=== PATIENT | female | born 1990 | race Caucasian/White ===

== ENCOUNTER 2016-11-23 08:19 | Inpatient (IN) ==
[2016-11-23] MEDS ORDERED: Oxytocin 20 units/ LR 1000 mL 20 UNIT/1,000 ML BAG IVC ONE ×2 (08:29→10:39)
[2016-11-23] MEDS ORDERED: Ringers Solution, Lactated 1,000 ML ONE (08:29)
[2016-11-23 08:53] LABS: Basophils % 0.3 %; Eosinophils # 0.1 K/mcL (0.0-0.6); Eosinophils % 0.8 %; Hematocrit 36.5 % (35.3-44.9); Hemoglobin 11.9 g/dL (11.5-15.4); Immature Granulocytes % 0.6 % (0-4); Lymphocytes # 3.1 K/mcL (0.6-4.6); Lymphocytes % 25.4 %; Mean Corpuscular HGB Conc 32.6 g/dL (31.6-35.5); Mean Corpuscular Hemoglobin 27.3 pg (28.0-33.3); Mean Corpuscular Volume 83.7 fL (83.0-100.0); Mean Platelet Volume 12.4 fL (9.4-12.4); Monocytes # 0.5 K/mcL (0.0-1.3); Monocytes % 4.1 %; Neutrophils # 8.5 K/mcL (1.6-8.9); Platelet Count 200 K/mcL (140-400); Red Blood Count 4.36 M/mcL (3.82-4.97); Red Cell Distribution Width 15.2 % (11.5-14.5); Segmented Neutrophils % 68.8 %
--- NOTE | 2016-11-23 09:03 | Anesthesia Evaluation PreOp ---
Date of Encounter: 11/23/16 Time of Encounter: 08:40 - Past History Planned Operation: vaginal delivery attempt with possible csection Cardiac History: Denies any Significant Hx, Pacemaker/ICD (p) Pulmonary History: Smoker, Pack/yr (5pk/yr) REAL ESTATE TRANSACTION COORDINATOR History: Other (pseudotumor cerebri with shunt placed in 2008, legally blind ) Other Medical History: Denies Any Significant HX Anesthesia History: No Prior Anesthetic Complications, Past Anesthesia (shunt placement for pseudotumor cerebri) : Yes Alcohol Use: none Drug use: none Medications and Allergies Ibuprofen [Motrin] 600 mg PO Q6H PRN #60 tablet 01/19/16 [Rx] Vit/FA 1 each PO DAILY tablet 01/19/16 [Rx] Allergies Penicillins Allergy (Mild, Verified 01/18/16 14:30) Rash Erythromycin Base Allergy (Unknown, Verified 01/18/16 14:30) See Comments patient states that reaction is unknown due to reaction taking place as a young child - Meds/Allergy Pre-op Review Medications Reviewed: Yes Allergies Reviewed: Yes Beta Blockers on Current Med List: No Anesthesia Results - Labs 11/23/16 08:30 Anesthesia Exam BP 133/72 P 100 R 20 Height: 5'3" NPO (# of Hours): 7HRS WATER LAST 1AM Pain Scale: 4 Pain Scale Used: Numeric (1 - 10) - HEENT Pupil (Motor): Pupils equal Mallampati: II Teeth: Missing (BACK TEETH) Oral Opening: Greater than 3 - REAL ESTATE TRANSACTION COORDINATOR REAL ESTATE TRANSACTION COORDINATOR Motor: Normal RUE, Normal LUE, Normal RLE, Normal LLE, Normal Face REAL ESTATE TRANSACTION COORDINATOR Sensory: Normal: RUE, LUE, RLE, LLE, Face - Cardiac Rhythm: Regular Murmur: None JVD: No Carotid Bruit: No - Pulmonary Breath Sounds: bilateral Clear Respiratory Effort: Symmetrical Anesthesia Assess/Plan ASA Score: 3 (MORBID OBESITY, PSEUDOTUMOR CEREBRI, SMOKER) Modified [place] Scale for Level of Consciousness: Cooperative, oriented, and tranquil Anesthetic Plan: General Autologous Blood: No Monitoring Plan: Standard Monitors Recovery Plan: PACU
[2016-11-23] MEDS ORDERED: Lidocaine 1% 20 ML MDV ONE (09:14)
--- NOTE | 2016-11-23 09:45 | OB/GYN History & Physical ---
Date of Encounter: 11/23/16 Time of Encounter: 08:45 Assessment and Plan (1) 38 weeks gestation of Current visit: Yes Status: Acute (2) Short interval between pregnancies affecting in third trimester, antepartum Current visit: Yes Status: Chronic The patient has been receiving care (3) Morbid obesity with BMI of 45.0-49.9, adult Current visit: No Status: Chronic Glucose screening normal. Patient has been receiving serial ultrasound for growth (4) Pseudotumor cerebri Current visit: No Status: Acute Status post shunt (5) Twin gestation in third trimester Current visit: Yes Status: Acute The patient has received serial ultrasounds and care. She has been vertex vertex on her last ultrasound and is requesting a vaginal delivery with consent for emergency if needed. Patient will need to be delivered by double set up in the operating room. Patient unable to have epidural or spinal anesthesia due to her history of pseudotumor cerebri and shunt Qualifiers: Multiple gestation type: dichorionic and diamniotic Qualified Code(s): O30.043 - Twin , dichorionic/diamniotic, third trimester (6) Gestational hypertension affecting third Current visit: Yes Status: Acute PIH labs and monitoring History of Present Illness Chief complaint: 38 wk twins HPI: Ms. Toth is a 26 year old female 3 para 2 EDC 12/06/16 @ 38 week twin gestation with spontaneous rupture membranes at 06 30. She reports contractions started at 7 AM. She reports the fluid was clear. She has been receiving care with Dr. White and has had level II ultrasounds. Both fetuses have been active. She reports that the first baby has been vertex and the second baby has been transverse but was vertex on her last ultrasound. First baby is a male and the second baby is female. This is also complicated by morbid obesity, tobacco use, history of pseudotumor cerebri, family history of Down syndrome. The patient is legally blind. She has history of noncompliance with her care. She also has a short interval. GBS is negative, blood type O positive, rubella immune, varicella immune Past Med Surg Social Fam HX - Past Medical History Source: patient, old records reviewed Medical history: other (Pseudotumor cerebri, blindness) Psychiatric history: no psych history - Past Surgical History Surgical History: other (Shunt) - Social History Smoking Status: Former smoker Smokeless Tobacco Status: No Alcohol use: none Drug use: none - Family History Mother Living Status: Still Living Hx Family Cardiac Disorders: No Hx Family Respiratory Disorders: No Hx Family Cancer: No Hx Family GI Disorders: No Hx Family Endocrine Disorder: No Hx Family Neuromuscular Disorders: No Hx Family Neurologic Disorders: No Hx Family HEENT Disorders: No Hx Family Autoimmune Disorders: No Obstetrical History - Pregnancies : 3 Para: 2 Term: 2 Livin Medications and Allergies Ibuprofen [Motrin] 600 mg PO Q6H PRN #60 tablet 01/19/16 [Rx] Vit/FA 1 each PO DAILY tablet 01/19/16 [Rx] Allergies Penicillins Allergy (Mild, Verified 01/18/16 14:30) Rash Erythromycin Base Allergy (Unknown, Verified 01/18/16 14:30) See Comments patient states that reaction is unknown due to reaction taking place as a young child Review of System OB All systems PM: reviewed and no additional remarkable complaints except as stated - Constitutional Constitutional ROS IM: fatigue, weight gain - Gastrointestinal Gastrointestinal: cramping - Genitourinary Genitourinary: as per HPI - Muscloskeletal Musculoskeletal: bilateral: foot swelling - Integumentary Integumentary: swelling - Neurological Nerological: loss of vision Exam - Vital Signs Vital signs: Afebrile, vital signs stable - Constitutional Constitutional: moderate distress, morbidly obese - HEENT HEENT: Normocephaly, Mucus Membranes Moist - Neck Neck exam: supple - Lungs Respiratory exam: CTAB - Cardiovascular Cardiovascular exam: RRR - Abdomen Abdomen: Present: bowel sounds normal, gravid, non tender - Extremities Extremities exam: pedal edema, warm Deep Tendon Reflex Grade: 3+ Normal But Brisk - Vulva Vulva: bilateral: normal - Vagina Vagina: Present: normal moisture (Nitrazine positive consistent with spontaneous rupture membranes, no vaginal bleeding noted) - Cervix Dilation: 8 Effacement: 100 Station: -2 - Anus/Rectum Anus/Rectum: Present: normal perianal skin Results Result Diagrams: 11/23/16 08:30 Abnormal lab results WBC 12.3 K/mcL (4.3-11.1) H 11/23/16 08:30 MCH 27.3 pg (28.0-33.3) L 11/23/16 08:30 RDW 15.2 % (11.5-14.5) H 11/23/16 08:30 All other labs normal. - VTE Documentation of Mechanical Device: Intermittent pneumatic compression device
--- NOTE | 2016-11-23 10:07 | OB/GYN Procedure Note ---
Delivery - Delivery Date: 11/23/16 Provider: Trupti Sanchez Intrapartum events: precipitous labor- <3hr Delivery induction: none Delivery augmentation: rupture of membranes (Twin B) Delivery monitor: external FHT, external uterine Anesthesia: local (1% lidocaine with epinephrine 10 mL) Estimated Blood Loss: 100 - Infant (s) A Infant Delivery Date: 11/23/16 Delivery Time: 08:57 Presentation: vertex Position: BARB Route of delivery: Gender: Male Viability: Viable Pounds: 5 Ounces: 11 Weight Gram: 2.58 kg at 1 minute: 9 at 5 mins: 10 Shoulder Dystocia: not encountered Specimens collected: cord blood Placenta: spontaneous, uterine exploration Cord: 3 umbilical vessels Infant B Delivery Date: 11/23/16 Delivery Time: 09:09 Presentation: vertex Position: BARB Route of delivery: Gender: Female Viability: Viable Pounds: 6 Ounces: 13 Weight Gram: 3.1 kg at 1 minute: 9 at 5 mins: 10 Shoulder Dystocia: not encountered Specimens collected: cord blood Placenta: spontaneous, uterine exploration Cord: 3 umbilical vessels - Repair Episiotomy: none Laceration Description: Periurethral, Perineal - 2nd Degree (Repaired with 3-0 Vicryl) - Complications Delivery complications: none Delivery comments: The patient was taken to the operating room and placed in dorsal lithotomy position in [facility] in anticipation of a vaginal delivery for twins. She had EPCDs placed in the event that she would need an emergency . Timeout was completed. Informed consent had been previously obtained for an emergency . She was prepped and draped in the usual sterile fashion with a precipitous delivery of baby A and BARB position weighing 5 lbs. 11 oz. with Apgars of 9 at 1 minute and 10 at 5 minutes. The cord was clamped and cut and the was passed to the nursery care team. Cord blood was obtained. The cord was then clamped with a single cord clamp. Bedside ultrasound was then placed to confirm position of baby B and identify where Doppler for heart tones should be placed. Vertex presentation confirmed. Patient reports contractions. Vertex at 0 station with amniotomy, moderate clear fluid seen. The patient then went rapidly to pushing with the fetus on the perineum. Baby B was then delivered and cord was clamped and cut and the infant was given to the nursery care team. Cord blood and cord segment were obtained. The umbilical cord was clamped with 2 cord clamps. There was a superficial periurethral laceration which was hemostatic and not repaired. A second-degree perineal laceration was injected 1% lidocaine with epinephrine and repaired with 3-0 Vicryl in the usual fashion. Placenta was then delivered spontaneous and intact. It was to be sent to pathology. - Disposition Mom disposition: stable in LDR (Double set up in operating room) [place] disposition: stable in LDR (Double setup in operating room)
[2016-11-23 11:36] LABS: Alanine Aminotransferase 40 Units/L (0-55); Aspartate Amino Transferase 38 Units/L (5-34); BUN/Creatinine Ratio 10 (6-26); Blood Urea Nitrogen 8 mg/dL (7-20); Lactate Dehydrogenase 186 Units/L (159-327); eGFR For African Americans > 60 (> 60); eGFR For Non-African Americans > 60 (> 60)
[2016-11-23] MEDS ORDERED: Oxytocin 20 units/ LR 1000 mL 20 UNIT/1,000 ML BAG IVC SCH (12:00)
[2016-11-23] MEDS ORDERED: Measles/Mumps/Rubella Vacc 0.5 ML VIAL SQ PRN (12:00)
[2016-11-23] MEDS ORDERED: Rho Immune Globulin 1,500 UNIT SYRINGE IM PRN (12:00)
[2016-11-23] MEDS ORDERED: Ibuprofen 600 MG TABLET PO PRN (12:00)
[2016-11-23] MEDS ORDERED: Acetaminophen 325 MG TABLET PO PRN (12:00)
[2016-11-24 04:53] LABS: Basophils % 0.3 %; Eosinophils # 0.1 K/mcL (0.0-0.6); Eosinophils % 0.9 %; Hematocrit 30.1 % (35.3-44.9); Immature Granulocytes % 0.6 % (0-4); Lymphocytes # 2.8 K/mcL (0.6-4.6); Mean Corpuscular HGB Conc 32.9 g/dL (31.6-35.5); Mean Corpuscular Hemoglobin 27.7 pg (28.0-33.3); Mean Corpuscular Volume 84.1 fL (83.0-100.0); Mean Platelet Volume 12.3 fL (9.4-12.4); Monocytes # 0.6 K/mcL (0.0-1.3); Monocytes % 4.7 %; Neutrophils # 8.2 K/mcL (1.6-8.9); Platelet Count 145 K/mcL (140-400); Red Blood Count 3.58 M/mcL (3.82-4.97); Segmented Neutrophils % 69.5 %
[2016-11-24 05:01] LABS: Hemoglobin 9.9 g/dL (11.5-15.4)
--- NOTE | 2016-11-24 08:12 | Discharge Summary ---
Date of Encounter: 11/24/16 Time of Encounter: 08:09 - Discharge Diagnosis (1) Twin , delivered vaginally, current hospitalization Priority: Primary Status: Acute Comments: pt states feels well. Pain well managed on po pain medication. Tolerates po diet. Bleeding minimal. Desires discharge (2) Anemia, Priority: Secondary Status: Acute - Discharge Medications Prescriptions: Ibuprofen [Motrin] 600 mg PO Q6HR PRN #60 tablet PRN Reason: Moderate Pain Ferrous Sulfate 325 mg PO DAILY #60 tablet Home Medications: Acetaminophen [Tylenol] 650 mg PO Q6HR PRN #0 tablet 11/24/16 [Rx] Ferrous Sulfate 325 mg PO DAILY #60 tablet 11/24/16 [Rx] Ibuprofen [Motrin] 600 mg PO Q6HR PRN #60 tablet 11/24/16 [Rx] Vit/FA 1 each PO DAILY tablet 11/24/16 [Rx] Allergies/Adverse Reactions: Allergies Penicillins Allergy (Mild, Verified 01/18/16 14:30) Rash Erythromycin Base Allergy (Unknown, Verified 01/18/16 14:30) See Comments patient states that reaction is unknown due to reaction taking place as a young child Amoxicillin Allergy (Verified 11/23/16 10:03) Rash Data Procedures and tests throughout hospitalization: Laboratory Tests 11/23/16 11/23/16 11/24/16 08:30 08:30 04:07 WBC 12.3 H 11.8 H RBC 4.36 3.58 L Hgb 11.9 9.9 L D Hct 36.5 30.1 L MCV 83.7 84.1 MCH 27.3 L 27.7 L MCHC 32.6 32.9 RDW 15.2 H 15.0 H Plt Count 200 145 MPV 12.4 12.3 Immature Gran % 0.6 0.6 Seg Neutrophils % 68.8 69.5 Lymphocytes % 25.4 24.0 Monocytes % 4.1 4.7 Eosinophils % 0.8 0.9 Basophils % 0.3 0.3 Neutrophils # 8.5 8.2 Lymphocytes # 3.1 2.8 Monocytes # 0.5 0.6 Eosinophils # 0.1 0.1 Basophils # 0.0 0.0 BUN 8 Creatinine 0.77 Est GFR ( Amer) > 60 Est GFR (Non-Af Amer) > 60 BUN/Creatinine Ratio 10 Uric Acid 6.0 AST 38 H ALT 40 Lactate Dehydrogenase 186 Labs on day of discharge: Labs from last 24 hours 11/24/16 11/23/16 11/23/16 04:07 08:30 08:30 WBC 11.8 H 12.3 H RBC 3.58 L 4.36 Hgb 9.9 L D 11.9 Hct 30.1 L 36.5 MCV 84.1 83.7 MCH 27.7 L 27.3 L MCHC 32.9 32.6 RDW 15.0 H 15.2 H Plt Count 145 200 MPV 12.3 12.4 Immature Gran % 0.6 0.6 Seg Neutrophils % 69.5 68.8 Lymphocytes % 24.0 25.4 Monocytes % 4.7 4.1 Eosinophils % 0.9 0.8 Basophils % 0.3 0.3 Neutrophils # 8.2 8.5 Lymphocytes # 2.8 3.1 Monocytes # 0.6 0.5 Eosinophils # 0.1 0.1 Basophils # 0.0 0.0 BUN 8 Creatinine 0.77 Est GFR ( Amer) > 60 Est GFR (Non-Af Amer) > 60 BUN/Creatinine Ratio 10 Uric Acid 6.0 AST 38 H ALT 40 Lactate Dehydrogenase 186 Date of admission: 11/23/16 08:19 Consults: 11/23/16 12:00 Consult to Forging Operator [CONS] Routine Comment: Vaginal delivery, consult needed Discharging clinician: Sarah Deleon Anticipated date of discharge: 11/24/16 - Patient Status Disposition: Home, Self-Care Condition: Good Functional capacity at discharge: independent ambulation Overall status at discharge: patient is back to baseline - Discharge Instructions Instructions: Anemia (GEN) Follow Up With: Ludwig White MD [Partnered Physician] - - Diet and Activity Activity: resume usual activities as tolerated Diet: regular diet Hospital Course Reason for admission: active labor, ROM Delivery: Episiotomy: none Laceration: 2nd degree Other procedures: none complications: none Discharge diagnosis: IUP at term delivered [place] baby: twins Hospital course: Delivery - Delivery Date: 11/23/16 Provider: Trupti Sanchez Intrapartum events: precipitous labor- <3hr Delivery induction: none Delivery augmentation: rupture of membranes (Twin B) Delivery monitor: external FHT, external uterine Anesthesia: local (1% lidocaine with epinephrine 10 mL) Estimated Blood Loss: 100 - Infant (s) A Delivery Date: 11/23/16 Infant Delivery Time: 08:57 Presentation: vertex Position: BARB Route of delivery: Gender: Male Viability: Viable Pounds: 5 Ounces: 11 Weight Gram: 2.58 kg at 1 minute: 9 at 5 mins: 10 Shoulder Dystocia: not encountered Specimens collected: cord blood Placenta: spontaneous, uterine exploration Cord: 3 umbilical vessels B Infant Delivery Date: 11/23/16 Infant Delivery Time: 09:09 Presentation: vertex Position: BARB Route of delivery: Gender: Female Viability: Viable Pounds: 6 Ounces: 13 Weight Gram: 3.1 kg at 1 minute: 9 at 5 mins: 10 Shoulder Dystocia: not encountered Specimens collected: cord blood Placenta: spontaneous, uterine exploration Cord: 3 umbilical vessels - Repair Episiotomy: none Laceration Description: Periurethral, Perineal - 2nd Degree (Repaired with 3-0 Vicryl) - Complications Delivery complications: none Delivery comments: The patient was taken to the operating room and placed in dorsal lithotomy position [facility] in anticipation of a vaginal delivery for twins. She had EPCDs placed in the event that she would need an emergency . Timeout was completed. Informed consent had been previously obtained for an emergency . She was prepped and draped in the usual sterile fashion with a precipitous delivery of baby A and BARB position weighing 5 lbs. 11 oz. with Apgars of 9 at 1 minute and 10 at 5 minutes. The cord was clamped and cut and the infant was passed to the nursery care team. Cord blood was obtained. The cord was then clamped with a single cord clamp. Bedside ultrasound was then placed to confirm position of baby B and identify where Doppler for heart tones should be placed. Vertex presentation confirmed. Patient reports contractions. Vertex at 0 station with amniotomy, moderate clear fluid seen. The patient then went rapidly to pushing with the fetus on the perineum. Baby B was then delivered and cord was clamped and cut and the infant was given to the nursery care team. Cord blood and cord segment were obtained. The umbilical cord was clamped with 2 cord clamps. There was a superficial periurethral laceration which was hemostatic and not repaired. A second-degree perineal laceration was injected 1% lidocaine with epinephrine and repaired with 3-0 Vicryl in the usual fashion. Placenta was then delivered spontaneous and intact. It was to be sent to pathology. - Disposition Mom disposition: stable in PP. Appropriate for discharge Time Attestation: Total time spent providing and/or coordinating discharge services: Time Spent: Less than 30 minutes Exam - Constitutional Vitals: Temp Pulse Resp BP Pulse Ox 97.5 F L 71 16 114/73 98 11/24/16 02:45 11/24/16 02:45 11/24/16 02:45 11/24/16 02:45 11/24/16 02:45 General appearance IM: A&O X 3, pleasant, no acute distress - Respiratory Respiratory exam: Present: CTAB - Cardiovascular Cardiovascular exam IM: Present: RRR, +S1, +S2 - GI/Abdominal GI/Abdominal exam IM: normal bowel sounds, soft - Uterus Position: 1 Finger Above Umbilicus, Midline - Extremities Exam Extremities exam IM: Present: normal capillary refill, normal inspection - Neurological Exam Neurological exam: normal gait, oriented X3 - Psychiatric Additional comments: reports good mood
[2016-11-24] MEDS ORDERED: Prenatal Vit/FA 1 EACH TABLET PO SCH (09:00)
[2016-11-24 09:10] VITALS: BP 114/78
== END 2016-11-24 14:50 | disposition home or self-care (01) | DRG 775 ==
LOC: 1NENULAB 08:19 → 1NENUOBS 11:59
PROVIDERS: ADMIT Obstetrics & Gynecology; ATTEND Obstetrics & Gynecology